=== PATIENT | male | born 1945 | race Caucasian/White ===

== ENCOUNTER 2017-02-03 11:33 | Emergency (ER) | payer MEDICARE, BC ==
[~2017-02-03] VITALS: Ht 175.3 cm; Wt 126.1 kg
[~2017-02-03 11:33] MED LIST: TIMO5DRO26 OT; TRAVOPROST; [UNRECOGNIZED DRUG - OTHER]
[2017-02-03 11:44] VITALS: Ht 175.3 cm; Wt 126.1 kg
[2017-02-03] MEDS ORDERED: TRIA15CR55 TOP (12:21)
--- NOTE | 2017-02-03 12:24 | ERD ---
ER Documentation Chief Complaint Chief Complaint right arm redness x 5 days HPI 71-year-old male presents with a 5 day history of a lesion on his right forearm. Initially had some redness and swelling and itching. He suspect he was bit by an insect while sleeping. He did express some clear liquid out approximately 2 days ago. He then was applying hydrogen peroxide at home. The redness and swelling has decreased. He does have some rash in the area. He did not find it taken denies any fevers, vomiting, shortness breath or chest pain. ROS All systems reviewed and are negative except as per history of present illness. 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 GUILLAN BARRE, GOUT) Hx Alcohol Use: No Hx Substance Use: No Hx Tobacco Use: Yes (1/2 TO 1 PACK PER DAY) Smoking Status: Current every day smoker Physical Exam Vitals Vital Signs Date Time Temp Pulse Resp B/P Pulse Ox O2 Delivery O2 Flow Rate FiO2 02/03/17 11:44 98.0 84 18 147/99 98 Physical Exam Const: [] Alert, [id number]. Head: Atraumatic Eyes: Normal Conjunctiva ENT: Normal External Ears, Nose and Mouth. Neck: Full range of motion..~ No meningismus. Resp: Clear to auscultation bilaterally Cardio: Regular rate and rhythm, no murmurs Abd: Soft, non tender, non distended. Normal bowel sounds Skin: No petechiae or rashes. Approximately 2 cm scaly erythematous plaque with a central healing pustule on the right medial forearm. The lesion is dry. There is no fluctuance, warmth, erythema, streaking. Back: No midline or flank tenderness Ext: No cyanosis, or edema Neur: Awake and alert Psych: Normal Mood and Affect Procedures/MDM Patient presents with signs and symptoms what appear to be healing local reaction to likely an insect bite. There is no current evidence of active cellulitis, necrotizing fasciitis, abscess. Patient declines a tetanus booster. There may be an element of irritation from hydrogen peroxide as well. Recommending steroid cream and further observation at home as wound appears to be healing without treatment. Patient is advised to return for worsening redness, fevers, discharge, new worsening symptoms otherwise allow him to heal as directed and follow-up with primary care doctor this week. Departure Diagnosis: Primary Impression: Insect bite Encounter type: initial encounter Qualified Code: W57.XXXA - Insect bite, initial encounter Condition: Stable Patient Instructions: Allergic Reaction, Insect (Local) Additional Instructions: Suspect improving reaction to insect bite. No current evidence of infection. Recheck for worsening redness, fevers, new or worsening symptoms. EZIO VASQUEZ MD Feb 03, 2017 12:24
== END 2017-02-03 16:04 | disposition home or self-care (01) ==
LOC: FTE 11:33
DX: S40.861A Insect bite (nonvenomous) of right upper arm, initial encounter (principal); F17.210 Nicotine dependence, cigarettes, uncomplicated; W57.XXXA Bitten or stung by nonvenomous insect and other nonvenomous arthropods, initial encounter; Y92.9 Unspecified place or not applicable
CPT/HCPCS: 99283